=== PATIENT | female | born 1960 | race Caucasian/White ===

== ENCOUNTER 2018-10-18 09:38 | Day surgery (SDC) | payer BC ==
[~2018-10-18 09:38] MED LIST: Lactated Ringers 1,000 ML IV SCH; Midazolam 1 MG/ML 2 ML SDV ONE; Propofol 200 MG/20 ML SDV ONE; Sodium Chloride 0.9% 10 ML Syringe FLUSH PRN
[2018-10-18] MEDS ORDERED: Midazolam 1 MG/ML 2 ML SDV ONE (11:56)
[2018-10-18] MEDS ORDERED: Propofol 200 MG/20 ML SDV ONE (11:56)
--- NOTE | 2018-10-18 11:59 | PCM.HPR ---
H & P Addendum review - H & P Addendum Review Date of Original H & P: 10/09/18 Date Reviewed: 10/18/18 Time Reviewed: 11:50 Patient was Examined: No Changes
--- NOTE | 2018-10-18 12:23 | PCM.OPNOTE ---
- General Post-Op/Procedure Note Date of Surgery/Procedure: 10/18/18 Operative Procedure(s): Colonoscopy Findings: Normal Pre Op Diagnosis: FH Colon Ca Post-Op Diagnosis: Same Anesthesia Technique: MAC Primary Surgeon: Augusto Comer Anesthesia Provider: Carol Cleary Complications: None Condition: Good
--- NOTE | 2018-10-18 13:36 | OR ---
Date of Procedure: 10/18/2018 PREOPERATIVE DIAGNOSIS: Family history of colon cancer. POSTOPERATIVE DIAGNOSIS: Normal colonoscopy. PROCEDURE: Colonoscopy. ANESTHESIA: IV sedation. PROCEDURE IN DETAIL: The patient was brought to the procedure room where she was placed on her left side and IV sedation administered. Digital rectal exam was performed, which was normal. Colonoscope was inserted and advanced to the level of the cecum with some difficulty getting around the hepatic flexure, requiring changing to the supine position. Cecum was reached and was confirmed by identifying the appendiceal lumen and ileocecal valve. Prep was good and surfaces were well visualized. Upon withdrawing the scope, the ascending, transverse, and descending colon were normal in appearance. Sigmoid colon was somewhat tortuous, but otherwise normal. Rectum was normal and retroflexion was normal. Air was removed and the scope withdrawn. The patient tolerated the procedure well and returned to recovery in stable condition. Recommend routine colon screening again in 5 years. ABIMBOLA FRANCIS MD /[id number]
== END 2018-10-18 14:05 | disposition home or self-care (01) ==
LOC: LL.SDS 09:38
PROVIDERS: ATTEND Surgery
DX: Z12.11 Encounter for screening for malignant neoplasm of colon (principal); Z80.0 Family history of malignant neoplasm of digestive organs; Z79.82 Long term (current) use of aspirin; Z79.899 Other long term (current) drug therapy
CPT/HCPCS: J2250; J2704; J7120

== ENCOUNTER 2024-01-11 07:24 | Day surgery (SDC) | payer MEDICARE, BC ==
[2024-01-11] MEDS ORDERED: Sodium Chloride 0.9% 10 ML Syringe FLUSH PRN (07:30)
[2024-01-11] MEDS ORDERED: Propofol 200 MG/20 ML SDV ONE (07:53)
[2024-01-11] MEDS ORDERED: Midazolam 1 MG/ML 2 ML SDV ONE (07:53)
[2024-01-11] MEDS: Lactated Ringers 1,000 ML IV SCH (07:54)
[2024-01-11] MEDS ORDERED: Propofol 200 MG/20 ML SDV IV ONE (08:40)
== END 2024-01-11 09:49 | disposition home or self-care (01) ==
LOC: LL.SDS 07:24
PROVIDERS: ATTEND Surgery
DX: Z12.11 Encounter for screening for malignant neoplasm of colon (principal); K57.30 Diverticulosis of large intestine without perforation or abscess without bleeding; K64.9 Unspecified hemorrhoids; Z80.0 Family history of malignant neoplasm of digestive organs
CPT/HCPCS: J2250; J2704; J7120